=== PATIENT | female | born 1995 | race Caucasian/White ===

== ENCOUNTER 2017-08-02 17:29 | Emergency (ER) | payer OTHER ==
[~2017-08-02] VITALS: Ht 157.5 cm; Wt 55.8 kg
[2017-08-02 17:31] VITALS: Ht 157.5 cm; Wt 55.8 kg
[2017-08-02 19:01] VITALS: BP 128/83
== END 2017-08-02 19:01 | disposition home or self-care (01) ==
LOC: ED 17:29
DX: J04.0 Acute laryngitis (principal); J30.9 Allergic rhinitis, unspecified
CPT/HCPCS: J7512

== ENCOUNTER 2017-08-07 20:14 | Emergency (ER) | payer MEDICAID ==
[~2017-08-07] VITALS: Ht 154.9 cm; Wt 57.1 kg
[2017-08-07 20:29] VITALS: Ht 154.9 cm; Wt 57.1 kg
[2017-08-07 21:40] LABS: BASOPHIL % 0.2 % (0-2)
[2017-08-07 21:41] LABS: PLATELET COUNT 433 x10^3mcL (130-400)
[2017-08-07 21:53] LABS: CALCIUM 8.5 mg/dL (8.5-10.1); CARBON DIOXIDE 26.7 mmol/L (21-32); CHLORIDE SERUM 105 mmol/L (98-107); CREATININE SERUM 0.6 mg/dL (0.6-1.0); GFR1 > 60 mL/min; GLUCOSE SERUM 90 mg/dL (74-106); SODIUM SERUM 139 mmol/L (136-145)
[2017-08-07 21:57] LABS: ALBUMIN 3.7 g/dL (3.4-5.0); ALKALINE PHOSPHATASE 60 U/L (46-116); AST/SGOT 14 U/L (15-37); BILIRUBIN TOTAL 0.28 mg/dL (0.20-1.00); TOTAL PROTEIN, SERUM 7.3 g/dL (6.4-8.2)
[2017-08-07 22:05] LABS: ALT/SGPT 18 U/L (14-59)
[2017-08-07 23:02] VITALS: BP 120/59
== END 2017-08-07 23:02 | disposition home or self-care (01) ==
LOC: ED 20:14
PROVIDERS: Emergency Medicine
DX: R49.0 Dysphonia (principal); R50.9 Fever, unspecified
CPT/HCPCS: 36415